=== PATIENT | male | born 1945 | race Caucasian/White ===

== ENCOUNTER 2023-04-14 08:30 | Day surgery (SDC) | payer MEDICARE, OTHER ==
[~2023-04-14] VITALS: Ht 177.8 cm; Wt 71.7 kg
[~2023-04-14 08:30] MED LIST: APIX5TAB3 PO; ASPI-611 PO; FLO0.4C PO; LISI10TA27 PO; METO50TA16 PO
[2023-04-14 08:54] VITALS: BP 146/93; PULSE 85; RESP 16; TEMP 97.7; O2SAT 99
[2023-04-14 09:17] LABS: BASOPHILS % (AUTO) 0.5 % (0-1); EOSINOPHILS # (AUTO) 0.3 X10'3 (0-0.9); EOSINOPHILS % (AUTO) 6.5 % (0-6); HEMATOCRIT 38.6 % (42.0-52.0); LYMPHOCYTES # (AUTO) 0.4 X10'3 (1.1-4.8); LYMPHOCYTES % (AUTO) 10.7 % (21-51); MEAN CORPUSCULAR HEMOGLOBIN 31.8 PG (27.0-31.0); MEAN CORPUSCULAR HGB CONC 33.6 g/dL (33.0-36.5); MEAN CORPUSCULAR VOLUME 94.6 FL (78-98); MEAN PLATELET VOLUME 7.8 FL (7.4-10.4); MONOCYTES # (AUTO) 0.2 X10'3 (0-0.9); MONOCYTES % (AUTO) 5.3 % (2-12); NEUTROPHILS # (AUTO) 3.2 X10'3 (1.8-7.7); PLATELET COUNT 114 X10'3 (140-440); RED BLOOD COUNT 4.08 X10'6 (4.70-6.10); RED CELL DISTRIBUTION WIDTH 14.2 % (11.5-14.5); WHITE BLOOD COUNT 4.1 X10'3 (4.5-11.0)
[2023-04-14 09:27] LABS: PROTHROMBIN TIME 11.2 SECONDS (9.0-12.0)
[2023-04-14] MEDS ORDERED: METO-411 PO (09:28)
[2023-04-14] MEDS ORDERED: APIX2.5T PO (09:28)
[2023-04-14] MEDS ORDERED: FURO-150 PO (09:28)
[2023-04-14] MEDS ORDERED: FLUO30CR36 TOP (09:28)
[2023-04-14] MEDS ORDERED: LOSA-415 PO (09:28)
[2023-04-14 10:00] VITALS: RESP 16; O2SAT 99
[2023-04-14] MEDS ORDERED: LIDOcaine 1% 30ml preserv. free vial ONE (10:14)
== END 2023-04-14 11:32 | disposition home or self-care (01) ==
LOC: SSTAY O 08:30
PROVIDERS: ATTEND Radiology Diagnostic Radiology
DX: R91.1 Solitary pulmonary nodule (principal); Z53.8 Procedure and treatment not carried out for other reasons; I48.91 Unspecified atrial fibrillation; I42.0 Dilated cardiomyopathy; I34.0 Nonrheumatic mitral (valve) insufficiency; N40.0 Benign prostatic hyperplasia without lower urinary tract symptoms; I12.9 Hypertensive chronic kidney disease with stage 1 through stage 4 chronic kidney disease, or unspecified chronic kidney disease; N18.9 Chronic kidney disease, unspecified; D69.6 Thrombocytopenia, unspecified; F41.9 Anxiety disorder, unspecified; Z79.01 Long term (current) use of anticoagulants; Z79.899 Other long term (current) drug therapy; Z85.72 Personal history of non-Hodgkin lymphomas; Z96.651 Presence of right artificial knee joint; Z98.890 Other specified postprocedural states; Z72.89 Other problems related to lifestyle; Z79.82 Long term (current) use of aspirin
CPT/HCPCS: 36415; 85025; 85610; J7030; J3490